=== PATIENT | male | born 1985 | race African-American/Black ===

== ENCOUNTER 2018-10-27 11:30 | Emergency (ER) | payer OTHER ==
[~2018-10-27] VITALS: Ht 193 cm; Wt 111.0 kg
[2018-10-27 12:03] VITALS: BP 123/78
[2018-10-27] MEDS ORDERED: PREDNISONE10 MG PO (12:06)
[2018-10-27] MEDS ORDERED: TERBINAFINE250 M1 PO (12:06)
== END 2018-10-27 12:16 | disposition home or self-care (01) | DRG 607 ==
LOC: ED 11:30
DX: B35.4 Tinea corporis (principal)